=== PATIENT | male | born 1980 | race Caucasian/White ===

== ENCOUNTER 2018-02-26 23:00 | Emergency (ER) | payer BC, SELFPAY ==
--- NOTE | 2018-02-26 23:52 | RAD ---
RADIOGRAPH RIGHT KNEE 4 VIEWS: 02/26/18 HISTORY: 37-year-old male with right knee pain. COMPARISON: None. FINDINGS: There is no fracture or dislocation. There is superficial soft tissue edema anterior to the patellar tendon and anterior to the tibial tubercle. Perhaps tiny joint effusion. No destructive osseous lesio n. Mild degenerative changes at the patellofemoral compartment. Lateral and medial compartment joint spaces are maintained, without erosions or osteophytes. IMPRESSION: 1. Superficial anterior soft tissue edema. 2. Mild osteoarthrosis of the patellofemoral compartment. 3. No fracture. POS: [facility]
[2018-02-26] MEDS ORDERED: HYDROcodone/Acetaminophen 10/325 mg Tablet ONE (23:53)
== END 2018-02-27 00:05 | disposition home or self-care (01) ==
LOC: ERS 23:00
DX: M23.91 Unspecified internal derangement of right knee (principal); F41.9 Anxiety disorder, unspecified; F17.210 Nicotine dependence, cigarettes, uncomplicated; I10 Essential (primary) hypertension; Z79.899 Other long term (current) drug therapy; W22.8XXA Striking against or struck by other objects, initial encounter

== ENCOUNTER 2019-07-05 06:02 | Inpatient (IN) | payer SELFPAY ==
[2019-07-05 06:49] LABS: #Basophils 0.1 thou/uL (0.0-0.2); #Eosinphils 0.4 thou/uL (0.0-0.7); #Lymphocytes 3.6 thou/uL (1.20-3.40); #Neutrophils 3.1 thou/uL (1.40-6.50); %Basophils 0.8 % (0.0-1.0); %Eosinophils 5.2 % (0.0-10.0); %Lymphocytes 43.4 % (21.0-51.0); %Monocytes 12.7 % (0.0-10.0); %Neutrophils 37.8 % (42.0-75.0); Hemoglobin 13.6 g/dL (14.0-18.0); Mean Corpuscular HGB CONC 32.3 g/dL (32.0-36.0); Mean Corpuscular Hemoglobin 29.4 pg (27.0-31.0); Mean Corpuscular Volume 91.2 fL (78.0-98.0); Mean Platelet Volume 7.2 fL (7.4-10.4); Platelet Count 278 thou/uL (130-400); RBC Distribution Width 12.1 % (11.5-14.5); Red Blood Cell (RBC) Count 4.61 mill/uL (4.70-6.10); White Blood Cell (WBC) Count 8.2 thou/uL (4.8-10.8)
[2019-07-05 06:58] LABS: CO2 Tension 55.5 mmHg (35.0-45.0); pH, Arterial 7.35 (7.35-7.45)
[2019-07-05 06:59] LABS: Actual Bicarbonate (HCO3a) 29.7 mEq/L (22-28); Base Excess (BEa) 2.7 mEq/L (-2.0 to +3.0); Carboxyhemoglobin (COHb) 0.5 gm% (0.0-3.0); Hemoglobin (Hb) 14.1 g/dL (14.0-18.0)
[2019-07-05 07:00] LABS: ALV-art Gradient 27.355 (0-20); Analyzer IN Cardio ER; Calcium, Ionized 1.16 mmol/L (1.12-1.30); Potassium - ABG Lab 3.63 mmol/L (3.70-5.30); Puncture Site RRA
[2019-07-05 07:11] LABS: ALT (SGPT) 53 U/L (8-55); AST (SGOT) 28 U/L (5-34); Albumin 4.5 g/dL (3.5-5.0); Alkaline Phosphatase 82 U/L (40-110); Anion Gap 12 mmol/L (10-20); BUN (Urea Nitrogen) 20 mg/dL (8.9-20.6); Bilirubin, Total 0.5 mg/dL (0.2-1.2); Calc. Creatinine Clearance 0 mL/min (70-130); Calcium 9.4 mg/dL (7.8-10.44); Carbon Dioxide 30 mmol/L (22-29); Chloride 99 mmol/L (98-107); Estimated GFR-MDRD 88; Globulin 3.3 g/dL (2.4-3.5); Glucose 112 mg/dL (70-105); Potassium 3.6 mmol/L (3.5-5.1); Protein, Total 7.8 g/dL (6.0-8.3); Sodium 137 mmol/L (136-145)
--- NOTE | 2019-07-05 09:08 | CT ---
CT PULMONARY ANGIOGRAM WITH IV CONTRAST AND 3D POSTPROCESSING: Date: 07/05/19 HISTORY: Dyspnea. FINDINGS: There is good contrast opacification of the pulmonary arterial vasculature without filling defects to suggest pulmonary embolism. The thoracic aorta is well opacified without aneurysm or dissection. No pleural or pericardial effusions are seen. No pneumothoraces, focal areas of consolidation, or lung m asses are identified. There are dependent changes in the lung bases. There are mild degenerative yanes ges in the spine. IMPRESSION: No CT evidence of pulmonary embolism. POS: [facility]
--- NOTE | 2019-07-05 09:34 | RAD ---
PORTABLE CHEST 1 VIEW: Date: 07/05/19 Time: 0632 hours HISTORY: Shortness of breath. FINDINGS/IMPRESSION: The heart is enlarged. No lobar consolidation, pneumothoraces, federico pulmonary edema, or large effusi ons are seen. POS: [facility]
[2019-07-05 11:44] VITALS: BMI 51.7
[2019-07-05] MEDS ORDERED: Senokot S 8.6-50 MG TAB PO PRN (11:59)
[2019-07-05] MEDS ORDERED: Acetaminophen 325 MG TAB PO PRN (11:59)
[2019-07-05] MEDS ORDERED: Bisacodyl 10 MG SUPP PR PRN (11:59)
[2019-07-05] MEDS ORDERED: Guaifenesin DM 100-10/5 ML UDCUP PO PRN (11:59)
[2019-07-05] MEDS ORDERED: Sodium Chloride 0.9% 1,000 ML IV SCH (12:00)
[2019-07-05] MEDS ORDERED: ISOVUE-370 76%-LOCM 1 ML ONE (12:12)
--- NOTE | 2019-07-05 12:20 | HP ---
REASON FOR ADMISSION: Acute respiratory failure with hypoxia and hypercarbia, possible obstructive sleep apnea, possible obesity hypoventilation syndrome, acute metabolic encephalopathy secondary to above. HISTORY OF PRESENTING ILLNESS: Please note majority of this history is obtained by talking to the patient's as patient is not fully oriented at present. He is on BiPAP and is confused. Per , who is here at bedside, he has not been sleeping well for a few months now. He has tried taking Ativan at night and then switched over to Xanax. Saturday night, the patient took Ambien, which did not really work. He has had fragmented sleep and is waking up in between. Yesterday night, he took nearly 20 mg of melatonin and an hour later he took 2 mg of Xanax. He felt congested, woke up and he was in a panic and was pacing repeatedly at home. He thought he also took [place]. Finally, he became very anxious and developed shortness of breath. The also mentions that she has noticed lot of snoring with apneic episodes at home. They are in the process of getting a home sleep study next week. PAST MEDICAL AND SURGICAL HISTORY: History of ADHD, hypertension, morbid obesity, right middle finger surgery, left thumb surgery, hernia repair, GERD. CURRENT MEDICATION: 1. Lisinopril with hydrochlorothiazide 20/12.5 mg p.o. at bedtime. 2. Lorazepam 2 mg p.r.n. 3. 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 ALLERGIES: NO KNOWN DRUG ALLERGIES. PERSONAL HISTORY: He quit smoking six months ago. Does not abuse alcohol or drugs. Lives with his . FAMILY HISTORY: Both parents are living. Mother is healthy. Father has history of hypertension and coronary artery disease. 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 Code status is full. 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 REVIEW OF SYSTEMS: Cannot be accurately obtained as the patient is not oriented at present. PHYSICAL EXAMINATION: GENERAL: The patient is a 38-year-old male, who is currently on BiPAP. VITAL SIGNS: Blood pressure 148/80, pulse 64 per minute, respiratory rate 24 per minute, temperature 98.5 degrees Fahrenheit, saturating 96% on room air. NECK: Supple. No elevated JVD. HEENT: Eyes; extraocular muscles are intact. Pupils reacting to light. Oral cavity, mucous membranes are dry. No exudates or congestion. CARDIOVASCULAR SYSTEM: S1 and S2 heard. Regular rhythm. RESPIRATORY: Air entry 1+ bilateral. Distant breath sounds, rhonchi plus. No wheezes. ABDOMEN: Soft bowel sounds heard. No tenderness, rigidity, or guarding. EXTREMITIES: No peripheral edema or calf tenderness. VASCULAR SYSTEM: Peripheral pulses 2+ bilateral, no ischemic ulcerations or gangrene. CENTRAL NERVOUS SYSTEM: No gross focal deficits noted. The patient is confused and is not oriented. PSYCHIATRIC: Cannot be accurately assessed as he is not oriented at present and is on BiPAP. LABORATORY DATA: CT angio chest done shows no evidence of PE, serum bicarb 30, BUN 20, creatinine 0.9, serum glucose 112. Troponin x1 negative. BNP less than 10. Liver enzymes within normal limits. Albumin is 4.5. Blood gas shows a pH of 7.35, pCO2 55, PO2 53. White count of 8.2, H and H 13 and 42, platelet count 278, MCV is 91 with 37% neutrophils, 43% lymphocytes. EKG done shows normal sinus rhythm at 69 beats per minute. CLINICAL IMPRESSION AND PLAN: The patient will be admitted to [facility] for acute respiratory failure with hypoxia and hypercarbia. He likely has underlying obesity hypoventilation syndrome and obstructive sleep apnea as well. He is tolerating BiPAP and will continue on that. We will obtain Pulmonology consultation with Dr. Dill. We will place him on bronchodilators and mild dose of empiric steroids. We will continue his lisinopril/hydrochlorothiazide as before. The plan is for early mobilization. The patient has taken a combination of medications overnight, which led to worsening of his sleep apnea likely. He weighs nearly 175 kg and is morbidly obese. We will continue to closely monitor him in [facility]. Job ID: [id number]
[2019-07-05] MEDS ORDERED: Bacteriostatic Water 30 ML VIAL FS PRN (12:22)
[2019-07-05] MEDS ORDERED: FLU VACC QS2019-20(6MOS UP)/PF 60 MCG/0.5 ML SYRINGE IM ONE (12:30)
[2019-07-05] MEDS: methylPREDNISolone Sod Succ 40 MG VIAL IVP SCH ×2 (13:13→21:21)
[2019-07-05] MEDS ORDERED: methylPREDNISolone Sod Succ 40 MG VIAL IVP SCH (14:00)
[2019-07-05] MEDS: Famotidine 20 MG TAB PO SCH (21:19)
[2019-07-05] MEDS: Lorazepam 2 MG/ML VIAL SLOW IVP PRN (23:35)
--- NOTE | 2019-07-06 00:01 | CON ---
DATE OF CONSULTATION: 07/05/2019 HISTORY OF PRESENT ILLNESS: Alexander Almodovar presented to the hospital apparently with confusion. I am told he took melatonin and 2 mg of Xanax prior to going to bed as well as Ativan, possibly. Became very anxious last, night short of breath, came to the hospital. His significant other states that he has terrible sleep apnea. In her opinion, he was awaiting a home sleep study. He has been placed on BiPAP and still have an apnea with BiPAP. His apnea is much less frequent per my discussion with the respiratory therapist. He will awaken, but is somnolent. PAST MEDICAL HISTORY: Remarkable for hypertension, obesity, digit surgeries on both hands, and herniorrhaphy. MEDICATIONS: He is on; 1. COLTON inhibitor. 2. Hydrochlorothiazide. 3. He has p.r.n. alprazolam for home use. 4. 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 His girlfriend says that he does not drive anymore. ALLERGIES: HE HAS NO DRUG ALLERGIES. SOCIAL HISTORY: He is a former smoker. Does not drink. He has children from a previous marriage. FAMILY HISTORY: Non contributory. REVIEW OF SYSTEMS: 10 point review of systems completed, otherwise negative. PHYSICAL EXAMINATION: GENERAL: Wearing BiPAP. He will awaken, but quickly goes back to sleep. He is in no distress. VITAL SIGNS: Heart rate 65, blood pressure 117/52, respiratory rates in the teens, and his tidal volumes are about 800 to 1000 mL with BiPAP. He is a very large man 6 feet tall, 381 pounds, and BMI is 51. HEAD AND NECK: Unremarkable. I did not remove his BiPAP mask. LUNGS: Clear. HEART: Regular rhythm. S1, S2 normal. ABDOMEN: Soft and nontender. EXTREMITIES: Without clubbing, cyanosis, or edema. LABORATORY DATA: White count 8.2, hemoglobin 13.6, and platelets 278. Sodium 137, potassium 3.6, chloride 99, bicarb 30, BUN 20, and creatinine 0.96. PH 7.35, CO2 of 55, and PO2 of 53. IMPRESSION: 1. Life-threatening obesity. 2. Obesity hypoventilation syndrome. He will not do well with a home study. He needs an in-lab study for CPAP or BiPAP titration. It is imperative that he get on a 1200- to 1500-calorie a day diet once he gets out of here. Hopefully, we can remove the BiPAP in the morning and begin working on discharge and setting him up for sleep study. He needs to avoid these high doses of alprazolam at home and needs to stay off the Adderall. This is a 70 minute consult, with greater than 50% of time spent on unit coordinating care. Job ID: [id number] MTDD
[2019-07-06 05:13] LABS: #Eosinphils 0.1 thou/uL (0.0-0.7); #Lymphocytes 2.1 thou/uL (1.20-3.40); #Monocytes 0.8 thou/uL (0.11-0.59); #Neutrophils 7.7 thou/uL (1.40-6.50); %Basophils 0.4 % (0.0-1.0); %Eosinophils 0.6 % (0.0-10.0); %Lymphocytes 19.7 % (21.0-51.0); %Monocytes 7.7 % (0.0-10.0); %Neutrophils 71.6 % (42.0-75.0); Hemoglobin 13.8 g/dL (14.0-18.0); Mean Corpuscular HGB CONC 32.8 g/dL (32.0-36.0); Mean Corpuscular Hemoglobin 30.2 pg (27.0-31.0); Mean Corpuscular Volume 91.9 fL (78.0-98.0); Mean Platelet Volume 7.4 fL (7.4-10.4); Platelet Count 287 thou/uL (130-400); Red Blood Cell (RBC) Count 4.56 mill/uL (4.70-6.10); White Blood Cell (WBC) Count 10.8 thou/uL (4.8-10.8)
[2019-07-06 05:37] LABS: Anion Gap 13 mmol/L (10-20); BUN (Urea Nitrogen) 16 mg/dL (8.9-20.6); Calc. Creatinine Clearance 295 mL/min (70-130); Calcium 9.3 mg/dL (7.8-10.44); Carbon Dioxide 26 mmol/L (22-29); Chloride 98 mmol/L (98-107); Estimated GFR-MDRD Greater than 90; Glucose 203 mg/dL (70-105); Potassium 4.4 mmol/L (3.5-5.1); Sodium 133 mmol/L (136-145)
[2019-07-06] MEDS: methylPREDNISolone Sod Succ 40 MG VIAL IVP SCH ×2 (05:54→15:17)
[2019-07-06] MEDS: Lisinopril/Hydrochlorothiazide 20 mg/12.5 mg Tablet PO SCH (09:13)
[2019-07-06] MEDS: Enoxaparin Sodium 40 MG/0.4 ML SYRINGE SC SCH (09:13)
[2019-07-06] MEDS: Famotidine 20 MG TAB PO SCH ×2 (09:13→21:26)
--- NOTE | 2019-07-06 11:48 | PRG ---
DATE OF SERVICE: 07/06/2019 SUBJECTIVE: Mr. Almodovar slept all day yesterday, but did not wear BiPAP last night. He slept on his stomach like he does at his home with his chin tilted back on a pillow. I have explained to him that he has very severe sleep apnea, and we need to figure out a way to get him where he can wear at least nasal pillows while he is trying to lose weight. He showed me a picture of himself early in the springtime, and he probably weighed 150 pounds less than he weighs now. He says he has a diet that he has used in the past that works extremely well and he plans to get back on that. OBJECTIVE: LUNGS: Clear today. HEART: Regular rhythm. ABDOMEN: Soft. IMPRESSION: Obesity hypoventilation syndrome. PLAN: Trial of BiPAP during the day while he is watching TV with nasal pillows plus or minus a chinstrap to see if we can get him where he is semi comfortable with this. Otherwise, if he will not wear this, there is no reason to spend the money on all of this, and he just needs to lose the weight. 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 Hopefully, he will agree to stay in the hospital one more day and we can find a pressure that is accommodating and tolerable. Job ID: [id number]
--- NOTE | 2019-07-06 13:58 | PDOC.HOSPP ---
- Subjective Encounter Date: 07/06/19 Encounter Time: 08:45 Subjective: is awake, not in distress at bedside - Objective Vital Signs & Weight: Vital Signs (12 hours) Temp Pulse Resp Pulse Ox 07/06/19 11:12 98.2 F 07/06/19 10:41 57 L 19 94 L 07/06/19 09:13 77 07/06/19 08:00 97 07/06/19 07:46 95 07/06/19 07:45 97.1 F L 77 22 H 95 07/06/19 04:00 92 L 07/06/19 03:00 97.4 F L Weight Weight 379 lb 6 oz Most Recent Monitor Data Heart Rate from ECG 72 NIBP 155/79 NIBP BP-Mean 104 Respiration from ECG 20 SpO2 93 I&O: 07/05/19 07/06/19 07/07/19 06:59 06:59 06:59 Intake Total 1470 Output Total 1950 Balance -480 Result Diagrams: 07/06/19 04:39 07/06/19 04:39 Hospitalist ROS - Medication Medications: Active Medications Generic Name Dose Route Start Last Admin Trade Name Freq PRN Reason Stop Dose Admin Albuterol/Ipratropium 3 ml 07/05/19 15:00 07/06/19 10:41 Duoneb NEB 3 ml [id number] ALMA DELIA Administration Enoxaparin Sodium 40 mg 07/06/19 09:00 07/06/19 09:13 Lovenox SC 40 mg 0900 ALMA DELIA Administration Famotidine 20 mg 07/05/19 21:00 07/06/19 09:13 Pepcid PO 20 mg BID ALMA DELIA Administration Lisinopril/HCTZ 1 tab 07/06/19 09:00 07/06/19 09:13 Prinizide 20-12.5 PO 1 tab DAILY ALMA DELIA Administration Lorazepam 1 mg 07/05/19 16:21 07/05/19 23:35 Ativan SLOW IVP 1 mg Q6H PRN Administration severe anxiety Methylprednisolone Sodium Succinate 20 mg 07/05/19 14:00 07/06/19 05:54 Solu-Medrol IVP 20 mg Q8HR ALMA DELIA Administration - Exam General Appearance: NAD, awake alert Eye: PERRL, anicteric sclera ENT: no oropharyngeal lesions, moist mucosa Neck: supple, no JVD Heart: RRR, no murmur Respiratory: no wheezes, no rales Gastrointestinal: soft, non-tender, non-distended, normal bowel sounds Extremities: no cyanosis, no edema Neurological: cranial nerve grossly intact, no focal deficits Psychiatric: normal affect, A&O x 3 Hosp A/P (1) Acute respiratory failure with hypoxia and hypercapnia Code(s): J96.01 - ACUTE RESPIRATORY FAILURE WITH HYPOXIA; J96.02 - ACUTE RESPIRATORY FAILURE WITH HYPERCAPNIA Status: Resolved (2) KANCHAN (obstructive sleep apnea) Code(s): G47.33 - OBSTRUCTIVE SLEEP APNEA (ADULT) (PEDIATRIC) Status: Acute (3) Morbid obesity Code(s): E66.01 - MORBID (SEVERE) OBESITY DUE TO EXCESS CALORIES Status: Chronic (4) HTN (hypertension) Code(s): I10 - ESSENTIAL (PRIMARY) HYPERTENSION Status: Chronic Qualifiers: Hypertension type: essential hypertension Qualified Code(s): I10 - Essential (primary) hypertension (5) Attention deficit disorder (ADD) in adult Code(s): F98.8 - OTH BEHAV/EMOTN DISORD W ONSET USLY OCCUR IN CHLDHD AND ADOL Status: Chronic - Plan is on bipap trial for pressure inputs is fully oriented this am will go on his special diet and lose weight, is very motivated losing it at bedside nebs, flonase nasal spray, prinizide echo technically difficult, no rv strain? to ambulate as tolerated
[2019-07-06] MEDS: Lorazepam 2 MG/ML VIAL SLOW IVP PRN (23:56)
[2019-07-07] MEDS ORDERED: Fluticasone Propionate Nasal Spray 16 gm Bottle NASAL PRN (00:57)
[2019-07-07] MEDS: Enoxaparin Sodium 40 MG/0.4 ML SYRINGE SC SCH (08:45)
[2019-07-07] MEDS: Lisinopril/Hydrochlorothiazide 20 mg/12.5 mg Tablet PO SCH (08:45)
[2019-07-07] MEDS: Famotidine 20 MG TAB PO SCH (08:45)
[2019-07-07 08:46] VITALS: BP 127/62
[2019-07-07 11:04] VITALS: TEMP 96.6
--- NOTE | 2019-07-07 17:29 | PRG ---
DATE OF SERVICE: 07/07/2019 Alexander Almodovar wore BiPAP during the day yesterday at 12/8. He said his nose started burning last night, so he took it off and slept without it. He has a home sleep study set up at home. He said he tolerated these pressures well during the day, but I doubt that will adequately treat his sleep apnea. He says he thinks he could wear this at night, so since he already has a home sleep study scheduled, I have recommended that he complete this and then see me after that. We will set up auto BiPAP for him. He will have to buy the device. He understands that with his diet and proceed to try to lose 100 pounds, he says he can lose. I will see him after his sleep study. Job ID: [id number]
--- NOTE | 2019-07-07 18:09 | DIS ---
DATE OF ADMISSION: 07/05/2019 DATE OF DISCHARGE: 07/07/2019 DISCHARGE DISPOSITION: To home. PRIMARY DISCHARGE DIAGNOSES: Acute respiratory failure with hypoxia and hypercarbia; undiagnosed obstructive sleep apnea, likely obesity hypoventilation; morbid obesity; hypertension; history of attention deficit disorder. PROCEDURES DONE DURING HOSPITALIZATION: The patient has had CT angio chest done, which showed no evidence of PE. Echo with 2D Doppler was technically difficult with poor endocardial definition. H and H 13 and 41, platelet count 287, white count of 10, MCV 91. Blood gas done on arrival showed a pH of 7.35, pCO2 of 55, pO2 of 53. BUN 16, creatinine 0.8, serum bicarb 26. Troponin x1 negative. BNP less than 10. INPATIENT CONSULT: Dr. Dill for Pulmonology. DISCHARGE MEDICATIONS: 1. Nexium 40 mg twice daily. 2. Lisinopril with hydrochlorothiazide 20/12.5 mg p.o. daily. 3. Augmentin 875 mg p.o. twice daily for sinusitis for 6 days. 4. Flonase nasal spray. 5. Mucinex 600 mg p.o. twice daily. 6. DuoNebs four times daily p.r.n. ALLERGIES: NO KNOWN DRUG ALLERGIES. DISCHARGE PLAN: The patient has outpatient home sleep study arranged in the coming week. He needs to follow up with Dr. Roman Garcia in [address] Dill after his sleep studies are completed. BRIEF COURSE DURING HOSPITALIZATION: The patient initially was brought to emergency room after he was confused and had fragmented sleep for almost a week. He is morbidly obese and had suspicion of sleep apnea. In fact, the patient was scheduled for a home sleep study in this week. The night before he arrived, the patient took Ambien, Xanax, and melatonin, the combination of which drove him towards acute respiratory failure with hypoxia and hypercarbia. He was placed on BiPAP and admitted to [facility]. He has had consultation with Dr. Dill for Pulmonology. The patient was titrated on BiPAP here. He has had issues with tolerating it. Finally, the patient was okay with nasal pillows and pressure of 12/8, but had some nasal burning/irritation with it. The patient states he will likely tolerate this pressure if the air is humidified. He is advised to continue his home sleep study and follow up with Dr. Dill. Dr. Dill will set up auto BiPAP for him. He is also in the process of going on a strict diet and losing weight. He is hemodynamically stable and has been cleared for discharge by Dr. Dill. Please note, I have seen and examined the patient on the day of discharge. Job ID: [id number]
== END 2019-07-07 15:41 | disposition home or self-care (01) | DRG 189 ==
LOC: ERS 06:02 → IMCU/EMU 07:32
PROVIDERS: ADMIT Internal Medicine; ATTEND Internal Medicine
DX: J96.01 Acute respiratory failure with hypoxia (principal); G93.41 Metabolic encephalopathy; E66.2 Morbid (severe) obesity with alveolar hypoventilation; Z68.43 Body mass index [BMI] 50.0-59.9, adult; J96.02 Acute respiratory failure with hypercapnia; F90.9 Attention-deficit hyperactivity disorder, unspecified type; I10 Essential (primary) hypertension; K21.9 Gastro-esophageal reflux disease without esophagitis; Z98.890 Other specified postprocedural states; Z79.899 Other long term (current) drug therapy; Z87.891 Personal history of nicotine dependence
CPT/HCPCS: 36415; 71045; 71275; 80048; 80053; 82805; 83880; 84484; 85025; 90471; 90686; 90732; 93005; 93306; 94640; 94660; G0008; G0009; J1650; J2060; J2920; J7620; Q9966

== ENCOUNTER 2019-09-01 20:05 | Observation (INO) | payer SELFPAY ==
[2019-09-01 20:45] LABS: Bilirubin Large (Negative); Blood, Urine Large (Negative); Glucose, Urine (Dipstick) 100 mg/dL (Negative); Leukocyte Large (Negative); Nitrite Negative (Negative); Protein, Urine (Dipstick) > or equal to 300 mg/dL (Neg-Trace)
[2019-09-01 20:46] LABS: Clarity Turbid (Clear)
[2019-09-01 20:53] LABS: RBC/HPF Greater than 50 HPF (0-3)
[2019-09-01 20:54] LABS: Bacteria/HPF 2+ HPF (None Seen); Squamous Epithelial 0-3 HPF (0-3); Trichomonas/HPF None Seen HPF (None Seen); Yeast-Budding None Seen HPF (None Seen); Yeast-Hyphae None Seen HPF (None Seen)
[2019-09-01 21:26] LABS: #Basophils 0.1 thou/uL (0.0-0.2); #Eosinphils 0.4 thou/uL (0.0-0.7); #Lymphocytes 4.1 thou/uL (1.20-3.40); #Neutrophils 6.9 thou/uL (1.40-6.50); %Basophils 0.7 % (0.0-1.0); %Eosinophils 2.8 % (0.0-10.0); %Lymphocytes 33.1 % (21.0-51.0); %Monocytes 7.9 % (0.0-10.0); %Neutrophils 55.5 % (42.0-75.0); Hemoglobin 12.8 g/dL (14.0-18.0); Mean Corpuscular HGB CONC 34.7 g/dL (32.0-36.0); Mean Corpuscular Volume 89.5 fL (78.0-98.0); Mean Platelet Volume 7.2 fL (7.4-10.4); Platelet Count 298 thou/uL (130-400); RBC Distribution Width 12.2 % (11.5-14.5); Red Blood Cell (RBC) Count 4.13 mill/uL (4.70-6.10); White Blood Cell (WBC) Count 12.4 thou/uL (4.8-10.8)
[2019-09-01 21:32] LABS: INR-International Normal Ratio 0.9; PTT 26.6 SEC (22.9-36.1); Prothrombin Time 12.4 SEC (12.0-14.7)
[2019-09-01 21:46] LABS: ALT (SGPT) 40 U/L (8-55); AST (SGOT) 23 U/L (5-34); Albumin 4.3 g/dL (3.5-5.0); Alkaline Phosphatase 82 U/L (40-110); Anion Gap 14 mmol/L (10-20); BUN (Urea Nitrogen) 16 mg/dL (8.9-20.6); Bilirubin, Total 0.4 mg/dL (0.2-1.2); Calc. Creatinine Clearance 0 mL/min (70-130); Calcium 9.3 mg/dL (7.8-10.44); Carbon Dioxide 25 mmol/L (22-29); Chloride 102 mmol/L (98-107); Estimated GFR-MDRD 64; Globulin 3.2 g/dL (2.4-3.5); Glucose 205 mg/dL (70-105); Protein, Total 7.5 g/dL (6.0-8.3); Sodium 137 mmol/L (136-145)
--- NOTE | 2019-09-01 22:01 | CT ---
CT ABDOMEN AND PELVIS WITH IV CONTRAST 09/01/2019 CLINICAL INFORMATION: Hematuria. COMPARISON: None. Technique: Multiple contiguous axial CT images are obtained through the abdomen and pelvis with IV contrast. Cor onal reformatted images are provided. FINDINGS: Lower Chest: Minimal atelectasis is present in the lingula. The lung bases are otherwise clear. Vessels: Abdominal aorta is normal in caliber. Abdomen: Portal vein:Patent Gallbladder: Within normal limits for CT imaging. Liver: Diminished attenuation relative to the spleen likely attributable to fatty infiltration. The l iver is enlarged in craniocaudal dimensions measuring 20 cm. Spleen: within normal limits. Pancreas: within normal limits. Adrenals: within normal limits. Kidneys: No enhancing renal lesion is identified. There is no hydronephrosis. While precontrast imagi ng was not obtained, no definitive renal calculus is seen. No ureteral calculi are appreciated. Bowel: Normal caliber. Appendix: The appendix is visualized and normal in caliber. Peritoneum: No ascites or free air; no fluid collection. Mesentery and Retroperitoneum: No enlarged mesenteric or retroperitoneal lymph nodes. Abdominal Wall: within normal limits. Pelvis: Reproductive Organs: No pelvic masses. Pelvis within normal limits. Bladder: There is suggestion of slight irregular increased density at the posterior inferior aspect o f the urinary bladder. This could be artifactual, but a lesion within the base of the urinary bladder cannot be entirely excluded. This would be better evaluated with direct visualization. Bones: Bilateral pars defects are seen at L5 without significant anterolisthesis. IMPRESSION: 1. Slight irregular increased density in the posterior inferior aspect of the urinary bladder. While this could be artifactual, a lesion in the urinary bladder cannot be excluded. Direct visualization is recommended for further evaluation. 2. No enhancing renal mass is seen, and there is no hydronephrosis. 3. Fatty infiltration liver with enlargement of the liver in craniocaudal dimensions. 4. Bilateral pars defects at L5.
[2019-09-01] MEDS ORDERED: cefTRIAXone\\ROCEPHIN 2 GM VIAL ONE (22:44)
[2019-09-01] MEDS ORDERED: Sodium Chloride 0.9% 100 ML ONE (22:44)
[2019-09-02] MEDS ORDERED: Acetaminophen 325 MG TAB PO PRN (00:06)
[2019-09-02] MEDS ORDERED: Sodium Chloride 0.9% 1,000 ML IV SCH (00:30)
--- NOTE | 2019-09-02 00:54 | HP ---
CHIEF COMPLAINT: Hematuria. HISTORY OF PRESENT ILLNESS: This patient is a 39-year-old male, who was admitted to this facility in June with hypoxic and hypercapnic respiratory failure, likely due to a combination of obesity, sleep apnea, and sedative medications. The patient did not have a Pérez catheter during that admission. The patient reports that he was doing fine. 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 He noted yesterday that his urine became dark, subsequently became red consistent with hematuria and then he developed some clots that obstructed his urine at times, although it did not give him pain. It did cause him to force the urine more aggressively and when that happen, the clot would pass and blood and urine would splatter a bit. The patient ultimately presented to the emergency department today with the hematuria. He denies any pain, frequency, dysuria, or other urinary tract symptoms. He denies any fevers or chills. REVIEW OF SYSTEMS: He has some mild edema around the ankles, but otherwise all systems reviewed. All pertinent positives and negatives noted in the history of present illness. PAST MEDICAL HISTORY: Notable for ADHD, hypertension, morbid obesity, and obstructive sleep apnea. The patient reports that he did go and get a sleep study following his last admission. However, he chose not to pursue CPAP therapy because he is now getting a milligram of Xanax at bedtime and feels like he is sleeping well. Gastroesophageal reflux. PAST SURGICAL HISTORY: Right middle finger, left thumb surgery, hernia repair. FAMILY HISTORY: Both parents are living. Mother is healthy. Father has hypertension and coronary disease. SOCIAL HISTORY: Former smoker, quit about eight months ago. Denies alcohol or drugs. He is . He is full code and his would be his surrogate decision maker. In her absence, his friend, Usman Parkinson would be the substitute. CURRENT MEDICATIONS: 1. Lisinopril/HCTZ 20/12.5 one p.o. daily. 2. Lorazepam 2 mg p.r.n. 3. Nexium 40 mg p.o. daily. PHYSICAL EXAMINATION: VITAL SIGNS: Most recent vitals, BP 140/79, pulse 85, respirations 18, temperature is 98.7, O2 saturation is 96% on room air. GENERAL APPEARANCE: Age-appropriate male. He is awake, alert, pleasant, cooperative, morbidly obese, and has some nasal congestion audible in his speech. HEENT: CARLOS. No OP lesions. Large tongue with oropharynx not easily visible. NECK: Supple and symmetric, large in diameter. HEART: Regular rate and rhythm with no murmurs, gallops, or rubs. LUNGS: Clear to auscultation bilaterally with good chest wall expansion and air exchange. ABDOMEN: Soft, nontender, and nondistended. Positive bowel sounds. No masses. No organomegaly. He has no costovertebral angle tenderness. EXTREMITIES: He has trace edema at the sock line. No cyanosis or clubbing. PSYCH: The patient does demonstrate some characteristic ADHD behaviors in conversation and tends to jump around a bit and interrupts sentences, although very pleasant in doing so. NEURO: Cognitively intact, moving all extremities spontaneously. Cranial nerves intact. No focal deficits. LABORATORY DATA: White count 12.4, hemoglobin 12.8, platelets 298. Sodium 137, potassium 4.0, chloride 102, BUN 16, creatinine is 1.26, glucose 205, , AST 23, ALT 40, albumin 4.3. Urine is dark red, turbid, high protein levels, glucose levels, ketones present, large blood, large bilirubin, large leukocyte esterase with greater than 50 red cells, 11 to 20 white cells and 2+ bacteria. INR 0.9, PTT is 26.6. IMAGING STUDIES: CT abdomen and pelvis shows no pathology of the kidneys or ureters. There is a slight irregular increased density in the posterior inferior aspect of the urinary bladder, which could be artifactual. Lesion cannot be excluded. There is also fatty infiltration of the liver with enlargement of the liver in the craniocaudal dimensions. IMPRESSION AND PLAN: 1. Gross hematuria. Etiology is unclear, could be infectious. He has received a dose of Rocephin. We will continue that. He has no other significant risk factors for other pathology and has not had any recent instrumentation. He will continue with IV hydration and Dr. Henriquez has been notified. He will assess the patient in the morning and has left orders for a three-way catheter, should that become necessary, if the patient clots obstruct. We will follow his hemoglobin at this point and it appears his counts are fairly solid and does not look like he is rapidly losing significant amount of blood. 2. Hypertension. Continue lisinopril/HCTZ with his usual home dose. 3. Obstructive sleep apnea. The patient has opted not to treat himself with CPAP, but is using sedative medications, which is a bit concerning, but something needs to be addressed more long-term as an outpatient. I am not giving him any sedation here for fear of worsening sleep apnea symptoms. 4. History of gastroesophageal reflux disease. Continue with PPI. Peptic ulcer disease prophylaxis covered with the PPI. 5. Deep venous thrombosis prophylaxis. The patient will have SCDs and avoid anticoagulation in light of the hematuria. Job ID: [id number]
[2019-09-02 01:07] VITALS: BMI 51.5
[2019-09-02] MEDS: Oxymetazoline HCl 0.05% (30 ML BOT) NS PRN ×2 (01:34→09:16)
[2019-09-02 06:13] LABS: #Eosinphils 0.3 thou/uL (0.0-0.7); #Lymphocytes 2.8 thou/uL (1.20-3.40); #Monocytes 0.8 thou/uL (0.11-0.59); #Neutrophils 4.3 thou/uL (1.40-6.50); %Basophils 0.3 % (0.0-1.0); %Eosinophils 3.3 % (0.0-10.0); %Lymphocytes 34.7 % (21.0-51.0); %Monocytes 9.3 % (0.0-10.0); %Neutrophils 52.5 % (42.0-75.0); Hemoglobin 12.3 g/dL (14.0-18.0); Mean Corpuscular HGB CONC 34.9 g/dL (32.0-36.0); Mean Corpuscular Hemoglobin 31.4 pg (27.0-31.0); Mean Corpuscular Volume 89.8 fL (78.0-98.0); Mean Platelet Volume 7.2 fL (7.4-10.4); Platelet Count 265 thou/uL (130-400); RBC Distribution Width 12.1 % (11.5-14.5); Red Blood Cell (RBC) Count 3.93 mill/uL (4.70-6.10); White Blood Cell (WBC) Count 8.2 thou/uL (4.8-10.8)
[2019-09-02 06:35] LABS: Anion Gap 11 mmol/L (10-20); BUN (Urea Nitrogen) 14 mg/dL (8.9-20.6); Calc. Creatinine Clearance 285 mL/min (70-130); Carbon Dioxide 25 mmol/L (22-29); Chloride 103 mmol/L (98-107); Estimated GFR-MDRD Greater than 90; Glucose 169 mg/dL (70-105); Potassium 4.2 mmol/L (3.5-5.1); Sodium 135 mmol/L (136-145)
[2019-09-02 07:40] VITALS: BP 162/74; TEMP 97.8
--- NOTE | 2019-09-02 08:55 | CON ---
DATE OF CONSULTATION: 09/02/2019 HISTORY OF PRESENT ILLNESS: This is a 39-year-old white male, who was admitted last night with gross hematuria. It started probably a couple of days ago. 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 Urine was getting quite dark. , who is a nurse, said looked like it was kind of tea-colored and yesterday, it got redder, more maroon color, and he started having clots with it. He was able to pass the clots. He had no flank pain, no testicular pain, no abdominal pain, no nausea, no vomiting, no fevers, no chills, no dysuria, no change in urinary tract frequency or urgency. He has not been sick recently with any febrile illnesses, although in the last couple of days, he has developed mild upper respiratory tract symptoms. He has not been coughing up blood, however. He perhaps had some blood in the urine a year ago. He does have a history of tobacco use, although he quit 8 months ago. His white count yesterday was 12.4, it is 8.2 today. His hemoglobin yesterday was 12.8, was 12.3 today. His coags were normal yesterday. His creatinine was 1.2 yesterday, it is 0.8 today. His urine showed greater than 50 red cells, 11 to 20 white cells, and 2+ bacteria. Urine culture, I think, has been set up. It does not show a micro, but usually is a delay in doing that. He has been in the hospital here before, but I cannot find that he has had a urinalysis done before. PAST SURGICAL HISTORY: He has had hernia repair that was uneventful. He has had orthopedic procedures done on his left hand with some amputated digits and some reattachment of the thumb. PAST MEDICAL HISTORY: ADHD, hypertension, obesity, sleep apnea, and reflux disease. FAMILY HISTORY: No family history of renal disease. SOCIAL HISTORY: Denies any. Quit cigarette smoking. ROUTINE MEDICINES: 1. Nexium. 2. Lorazepam. 3. Lisinopril/hydrochlorothiazide. PHYSICAL EXAMINATION: He has no flank tenderness. His abdomen is obese but nontender. The bladder does not feel to be distended. He is not circumcised. There is no lesion. There is no blood at the meatus. The testicles descended without mass or tenderness. On looking at his three glass urine, his urine is starting to clear. Feels like the last time he went, which was in the toilet, it was much clear. I have reviewed his CAT scan, which was done with contrast. There are no delayed images or no precontrast images, but it failed to show any obvious renal lesion, hydronephrosis, or obvious renal stone. The bladder was not distended. There was a lesion in the base of the bladder, which could possibly be a bladder tumor, could also just be some clot that has not passed yet. I talked to the patient and his indicating that we need to see what the results of the urine culture are, probably will not be back until tomorrow or Saturday. He will need a cysto, but I would like to make sure we do that when we know if he has an infection that has been cleared, that will probably be done in my office. I think if his urine continues to clear this morning, he could safely go home on some oral Cipro and call my office Saturday and I can check the urine culture and set up followup visit for him. He should avoid aspirin and nonsteroidals. If he is here tomorrow, I will check him again. If he is not here tomorrow, then I will expect him to call my office this Saturday. Job ID: [id number]
[2019-09-02] MEDS ORDERED: Lisinopril/Hydrochlorothiazide 20 mg/12.5 mg Tablet PO SCH (09:00)
--- NOTE | 2019-09-02 12:42 | DIS ---
DATE OF ADMISSION: 09/01/2019 DATE OF DISCHARGE: 09/02/2019 DISCHARGE DIAGNOSES: 1. Gross hematuria, improved. 2. Urinary tract infection, suspected, organism not identified. 3. Hypertension. 4. Obstructive sleep apnea. 5. Morbid obesity. CONSULTATIONS: Dr. Francisco Henriquez with [facility]. PERTINENT LABORATORY AND X-RAY FINDINGS: Creatinine ranged between 0.85 to 1.26, estimated GFR ranged between 64 to greater than 90. CBC showed a white blood cell count ranged between 8.2 to 12.4, hemoglobin ranged between 12.3 to 12.8. PT 12.4, INR 0.9, and PTT 26.6. Urine culture pending. CT of the abdomen and pelvis dated 09/01/2019 showed irregular density in the posteroinferior aspect of the urinary bladder. No renal mass or hydronephrosis noted. Fatty infiltration of the liver noted. HOSPITAL COURSE: The patient was observed on the medical floor after presenting with gross hematuria. The patient was placed on IV fluids with urinalysis confirming a large amount of blood. The patient received prophylactic Rocephin and continued on IV fluids for the remainder of the hospital course. The patient was evaluated by the [facility] with recommendations to initiate ciprofloxacin on an outpatient basis pending final urine culture results. The patient will need outpatient evaluation including cystoscopy after resolution of acute process. The patient was instructed to avoid all NSAIDs and anticoagulation or instrumentation. Overall, the patient did remain clinically stable during the hospital course, tolerating regular oral intake and voiding appropriately. The patient overall clinically stable and ready for discharge on 09/02/2019. I have examined the patient and discussed followup instructions. The patient and family verbalized understanding and in agreement and ready for discharge on 09/02/2019. DISCHARGE MEDICATIONS: 1. Xanax 1 mg p.o. at bedtime p.r.n. 2. Nexium 40 mg p.o. b.i.d. 3. Lisinopril/hydrochlorothiazide 20/12.5 mg 1 tablet p.o. daily. 4. Ciprofloxacin 500 mg p.o. b.i.d. x7 days. 5. Fluticasone 1 spray in each naris daily. FOLLOWUP: The patient may follow up with his primary care provider, Dr. Roman Garcia within 7 days of discharge. The patient may follow up with Dr. Francisco Martinez with [facility] and to call his office for appointment time and date. CONDITION ON DISCHARGE: Stable. ACTIVITY: Ad-kaylen. DIET: Heart healthy. SPECIAL INSTRUCTIONS: Review urine culture results when available in the next 24 to 48 hours. CODE STATUS: Full. DISPOSITION: To home on 09/02/2019. Job ID: [id number]
[2019-09-02] MEDS ORDERED: cefTRIAXone\\ROCEPHIN 2 GM in Sodium Chloride 0.9% 100 ML IVPB SCH (23:00)
== END 2019-09-02 12:10 | disposition home or self-care (01) ==
LOC: ERS 20:05 → T4-A 23:19
PROVIDERS: ADMIT Internal Medicine; ATTEND Internal Medicine
DX: R31.0 Gross hematuria (principal); I10 Essential (primary) hypertension; G47.33 Obstructive sleep apnea (adult) (pediatric); K21.9 Gastro-esophageal reflux disease without esophagitis; E66.01 Morbid (severe) obesity due to excess calories; F90.9 Attention-deficit hyperactivity disorder, unspecified type; Z68.43 Body mass index [BMI] 50.0-59.9, adult; Z79.899 Other long term (current) drug therapy; Z87.891 Personal history of nicotine dependence
CPT/HCPCS: 36415; 74177; 80048; 80053; 81003; 81015; 85025; 85610; 85730; 87086; 96361; 96365; 96366; G0378; J0696; J3490

== ENCOUNTER 2022-12-10 12:00 | Observation (INO) | payer SELFPAY ==
[2022-12-10 12:45] LABS: #Eosinphils 0.2 thou/uL (0.0-0.7); #Lymphocytes 3.3 thou/uL (1.20-3.40); #Monocytes 0.8 thou/uL (0.11-0.59); #Neutrophils 6.5 thou/uL (1.40-6.50); %Eosinophils 2.2 % (0.0-10.0); %Lymphocytes 30.1 % (21.0-51.0); %Monocytes 7.6 % (0.0-10.0); %Neutrophils 60.1 % (42.0-75.0); Hemoglobin 12.5 g/dL (14.0-18.0); Mean Corpuscular HGB CONC 33.2 g/dL (32.0-36.0); Mean Corpuscular Hemoglobin 30.1 pg (27.0-31.0); Mean Corpuscular Volume 90.7 fl (78.0-98.0); Mean Platelet Volume 7.8 fL (7.4-10.4); Platelet Count 269 10x3/uL (130-400); RBC Distribution Width 12.1 % (11.5-14.5); Red Blood Cell (RBC) Count 4.14 mill/uL (4.70-6.10); White Blood Cell (WBC) Count 10.8 10x3/uL (4.8-10.8)
[2022-12-10 13:01] LABS: PTT 26.4 sec (22.9-36.1); Prothrombin Time 13.1 sec (12.0-14.7)
[2022-12-10 13:13] LABS: ALT (SGPT) 33 U/L (8-55); AST (SGOT) 24 U/L (5-34); Albumin 4.2 g/dL (3.5-5.0); Alkaline Phosphatase 68 U/L (40-110); Anion Gap 12 mmol/L (10-20); BUN (Urea Nitrogen) 15 mg/dL (8.9-20.6); Bilirubin, Total 0.7 mg/dL (0.2-1.2); Calc. Creatinine Clearance 0 mL/min (70-130); Calcium 9.2 mg/dL (7.8-10.44); Carbon Dioxide 24 mmol/L (22-29); Chloride 104 mmol/L (98-107); Estimated GFR 115; Globulin 3.3 g/dL (2.4-3.5); Glucose 156 mg/dL (70-105); Potassium 4.1 mmol/L (3.5-5.1); Protein, Total 7.5 g/dL (6.0-8.3); Sodium 136 mmol/L (136-145)
[2022-12-10] MEDS ORDERED: fentaNYL PF 100 MCG/2 ML SYRINGE ONE (13:54)
[2022-12-10] MEDS ORDERED: Morphine 4 MG/ML VIAL ONE (13:55)
[2022-12-10] MEDS ORDERED: CEFAZOLIN 2 GM VIAL ONE (14:06)
[2022-12-10] MEDS ORDERED: Ondansetron PF 4 MG/2 ML Vial ONE (15:23)
[2022-12-10] MEDS ORDERED: PROPOFOL 200 MG/20 ML VIAL ONE (15:23)
[2022-12-10] MEDS ORDERED: GLYCOPYRROLATE/PF 0.2 MG/ML VIAL ONE (15:23)
[2022-12-10] MEDS ORDERED: Lidocaine 1% PF 5 ML VIAL ONE (15:23)
[2022-12-10] MEDS ORDERED: Rocuronium Bromide 10 MG/ML (10ML VIAL) ONE (15:23)
[2022-12-10] MEDS ORDERED: Dexamethasone 20 MG/5 ML VIAL ONE (15:23)
[2022-12-10] MEDS ORDERED: NEOSTIGMINE 3 MG/3 ML SYR 3 MG/3 ML SYRINGE ONE (15:23)
[2022-12-10] MEDS ORDERED: Meperidine HCl/PF 25 MG/ML VIAL ONE (16:37)
[2022-12-10] MEDS ORDERED: HYDROmorphone 2 MG/ML VIAL SLOW IVP PRN (16:40)
[2022-12-10] MEDS ORDERED: Promethazine HCl 25 MG/ML VIAL IM PRN (16:40)
[2022-12-10] MEDS ORDERED: Ondansetron HCl/PF 4 MG/2 ML Vial IVP PRN (16:40)
[2022-12-10] MEDS ORDERED: Meperidine HCl/PF 25 MG/ML VIAL SLOW IVP PRN ×2 (16:40)
[2022-12-10] MEDS ORDERED: fentaNYL 50 mcg/mL 1 mL Vial ONE ×4 (16:56→18:35)
[2022-12-10] MEDS ORDERED: B & O 30 MG SUPP PR PRN (17:08)
[2022-12-10] MEDS ORDERED: Dextrose 50% Abboject 50 ML SYRINGE SLOW IVP PRN (18:45)
[2022-12-10] MEDS ORDERED: Ondansetron ODT 4 MG TAB PO PRN (18:45)
[2022-12-10] MEDS ORDERED: HYDROcodone/Acetaminophen 7.5/325 mg Tablet PO PRN (18:45)
[2022-12-10] MEDS ORDERED: Ondansetron PF 4 MG/2 ML Vial IVP PRN (18:45)
[2022-12-10] MEDS ORDERED: Dextrose 5% in Water 1,000 ML IV PRN (18:45)
[2022-12-10] MEDS ORDERED: Acetaminophen 325 MG TAB PO PRN (18:45)
[2022-12-10] MEDS ORDERED: HumaLOG 300 UNITS/3 ML VIAL SC PRN ×2 (18:45)
[2022-12-10 20:39] VITALS: BMI 52.4
[2022-12-10 21:34] LABS: Hemoglobin 12.2 g/dL (14.0-18.0)
[2022-12-10] MEDS: Sodium Chloride 0.9% 1,000 ML IV SCH (21:36)
[2022-12-10 21:55] LABS: Bilirubin Negative (Negative); Blood, Urine 3+ (Negative); CAUTI Indications for Culture Acute Hematuria; Clarity Turbid (Clear); Glucose, Urine (Dipstick) Greater than 1000 mg/dL (Negative); Ketone, Urine 10 mg/dL (Negative); Leukocyte 25 Leu/uL (Negative); Mucous/LPF Rare LPF (<2+); Nitrite Negative (Negative); Protein, Urine (Dipstick) 100 mg/dL (Neg-Trace); RBC/HPF Greater than 50 HPF (0-3); Specific Gravity, Urine 1.022 (1.002-1.036); Squamous Epithelial None Seen HPF (0-3); Urobilinogen Normal mg/dL (Less than 2)
[2022-12-10 22:03] LABS: Bacteria/HPF 1+ HPF (None Seen)
[2022-12-10 22:04] LABS: Urine Culture Reflex Yes Yes
[2022-12-10] MEDS: HYDROcodone/Acetaminophen 7.5/325 mg Tablet PO PRN (22:17)
[2022-12-10] MEDS: CEFAZOLIN 1 GM in Sodium Chloride 0.9% 100 ML IVPB SCH (22:17)
[2022-12-11] MEDS: Morphine 2 MG/ML VIAL SLOW IVP PRN ×2 (00:03→04:27)
[2022-12-11] MEDS ORDERED: ALPRAZolam 1 MG TAB PO PRN (00:19)
[2022-12-11] MEDS: CEFAZOLIN 1 GM in Sodium Chloride 0.9% 100 ML IVPB SCH ×2 (05:27→16:59)
[2022-12-11 07:43] LABS: #Lymphocytes 2.6 thou/uL (1.20-3.40); #Monocytes 1.2 thou/uL (0.11-0.59); #Neutrophils 10.7 thou/uL (1.40-6.50); %Basophils 0.2 % (0.0-1.0); %Eosinophils 0.2 % (0.0-10.0); %Monocytes 8.4 % (0.0-10.0); %Neutrophils 73.2 % (42.0-75.0); Hemoglobin 11.6 g/dL (14.0-18.0); Mean Corpuscular HGB CONC 32.6 g/dL (32.0-36.0); Mean Corpuscular Hemoglobin 29.7 pg (27.0-31.0); Mean Platelet Volume 7.6 fL (7.4-10.4); Platelet Count 308 10x3/uL (130-400); RBC Distribution Width 12.1 % (11.5-14.5); White Blood Cell (WBC) Count 14.7 10x3/uL (4.8-10.8)
[2022-12-11] MEDS ORDERED: ESOMEPRAZOLE MAGNESIUM 40 MG PO SCH (08:00)
[2022-12-11 08:01] VITALS: TEMP 97.9
[2022-12-11 08:51] LABS: Anion Gap 16 mmol/L (10-20); BUN (Urea Nitrogen) 16 mg/dL (8.9-20.6); Calc. Creatinine Clearance 281 mL/min (70-130); Calcium 8.8 mg/dL (7.8-10.44); Carbon Dioxide 20 mmol/L (22-29); Chloride 102 mmol/L (98-107); Estimated GFR 111; Glucose 244 mg/dL (70-105); Potassium 4.3 mmol/L (3.5-5.1); Sodium 134 mmol/L (136-145)
[2022-12-11] MEDS ORDERED: Rosuvastatin 10 MG TAB PO SCH (09:00)
[2022-12-11] MEDS ORDERED: Polyethylene Glycol 3350 17 GM Packet PO SCH (09:00)
[2022-12-11] MEDS ORDERED: Lisinopril 20 MG TAB PO SCH (09:00)
[2022-12-11] MEDS ORDERED: Fluticasone Propionate Nasal Spray 16 gm Bottle NASAL SCH (09:00)
[2022-12-11] MEDS: Sodium Chloride 0.9% 1,000 ML IV SCH (09:30)
[2022-12-11] MEDS: HYDROcodone/Acetaminophen 7.5/325 mg Tablet PO PRN (15:17)
[2022-12-11 16:52] VITALS: BP 135/69
[2022-12-11] MEDS ORDERED: METFORMIN HCL 500 MG PO SCH (21:00)
== END 2022-12-11 18:17 | disposition home or self-care (01) ==
LOC: ERS 12:00 → T4-A 15:55
PROVIDERS: ADMIT Internal Medicine; ATTEND Internal Medicine
PROC: 0TBB8ZZ Excision of Bladder, Via Natural or Artificial Opening Endoscopic (ICD-10-PCS; principal; 2022-12-10)
DX: N30.81 Other cystitis with hematuria (principal); I10 Essential (primary) hypertension; E11.9 Type 2 diabetes mellitus without complications; E78.5 Hyperlipidemia, unspecified; D64.9 Anemia, unspecified; K21.9 Gastro-esophageal reflux disease without esophagitis; G47.33 Obstructive sleep apnea (adult) (pediatric); E66.01 Morbid (severe) obesity due to excess calories; Z68.43 Body mass index [BMI] 50.0-59.9, adult; Z85.51 Personal history of malignant neoplasm of bladder; Z87.891 Personal history of nicotine dependence; Z79.84 Long term (current) use of oral hypoglycemic drugs; Z79.899 Other long term (current) drug therapy
CPT/HCPCS: 36415; 36416; 80048; 80053; 81001; 85025; 85610; 85730; 86850; 86900; 86901; 87086; 88307; 96375; 96376; G0378; J0690; J1100; J1815; J2175; J2270; J2272; J2405; J2704; J3010; J3490

== ENCOUNTER 2023-05-28 10:53 | Observation (INO) | payer SELFPAY ==
[2023-05-28 11:44] LABS: SARS-CoV-2 NAA Rapid Test Not Detected (NotDetected)
[2023-05-28] MEDS ORDERED: Ketorolac Tromethamine 30 MG/ML VIAL ONE (11:54)
[2023-05-28] MEDS ORDERED: Acetaminophen 500 MG TAB ONE (11:54)
[2023-05-28] MEDS ORDERED: cefTRIAXone (ROCEPHIN) 2 GM VIAL ONE (12:11)
[2023-05-28 12:25] LABS: #Basophils 0.1 thou/uL (0.0-0.2); #Monocytes 1.6 thou/uL (0.11-0.59); #Neutrophils 9.8 thou/uL (1.40-6.50); %Basophils 0.4 % (0.0-1.0); %Eosinophils 0.2 % (0.0-10.0); %Lymphocytes 13.3 % (21.0-51.0); %Monocytes 12.2 % (0.0-10.0); %Neutrophils 73.6 % (42.0-75.0); Hematocrit 35.9 % (42.0-52.0); Hemoglobin 11.7 g/dL (14.0-18.0); Mean Corpuscular HGB CONC 32.6 g/dL (32.0-36.0); Mean Corpuscular Hemoglobin 29.9 pg (27.0-31.0); Mean Corpuscular Volume 91.8 fl (78.0-98.0); Mean Platelet Volume 9.8 fL (7.4-10.4); Platelet Count 251 10x3/uL (130-400); RBC Distribution Width 13.5 % (11.5-14.5); Red Blood Cell (RBC) Count 3.91 mill/uL (4.70-6.10); White Blood Cell (WBC) Count 13.3 10x3/uL (4.8-10.8)
[2023-05-28 12:35] LABS: INR-International Normal Ratio 1.1; Prothrombin Time 14.8 sec (12.0-14.7)
[2023-05-28 12:51] LABS: ALT (SGPT) 56 U/L (8-55); AST (SGOT) 38 U/L (5-34); Albumin 4.1 g/dL (3.5-5.0); Alkaline Phosphatase 79 U/L (40-110); Anion Gap 13 mmol/L (10-20); BUN (Urea Nitrogen) 8 mg/dL (8.9-20.6); Calc. Creatinine Clearance 0 mL/min (70-130); Calcium 8.9 mg/dL (7.8-10.44); Carbon Dioxide 23 mmol/L (22-29); Chloride 97 mmol/L (98-107); Estimated GFR 112; Globulin 3.4 g/dL (2.4-3.5); Glucose 171 mg/dL (70-105); Potassium 3.7 mmol/L (3.5-5.1); Protein, Total 7.5 g/dL (6.0-8.3); Sodium 129 mmol/L (136-145)
[2023-05-28] MEDS ORDERED: Azithromycin 500 MG VIAL ONE (13:09)
[2023-05-28] MEDS ORDERED: Acetaminophen 325 MG TAB PO PRN ×2 (14:04→15:44)
[2023-05-28] MEDS ORDERED: Ondansetron ODT 4 MG TAB PO PRN (14:04)
[2023-05-28] MEDS ORDERED: Ondansetron PF 4 MG/2 ML Vial IVP PRN (14:04)
[2023-05-28] MEDS ORDERED: Ibuprofen 600 MG TAB PO PRN (14:04)
[2023-05-28] MEDS ORDERED: Calcium Carbonate 500 MG ChewTAB PO PRN (14:04)
[2023-05-28] MEDS ORDERED: Sodium Chloride 0.9% 1,000 ML IV SCH (14:15)
[2023-05-28] MEDS ORDERED: Ipratropium/Albuterol 3 ML NEB NEB PRN (14:17)
[2023-05-28 14:33] LABS: #Monocytes 1.8 thou/uL (0.11-0.59); #Neutrophils 10.4 thou/uL (1.40-6.50); %Basophils 0.3 % (0.0-1.0); %Eosinophils 0.2 % (0.0-10.0); %Lymphocytes 15.2 % (21.0-51.0); %Monocytes 12.6 % (0.0-10.0); %Neutrophils 71.3 % (42.0-75.0); Hematocrit 35.1 % (42.0-52.0); Hemoglobin 11.6 g/dL (14.0-18.0); Mean Corpuscular Hemoglobin 29.7 pg (27.0-31.0); Mean Platelet Volume 9.5 fL (7.4-10.4); Platelet Count 246 10x3/uL (130-400); RBC Distribution Width 13.4 % (11.5-14.5); White Blood Cell (WBC) Count 14.6 10x3/uL (4.8-10.8)
[2023-05-28 15:22] VITALS: BMI 39.5
[2023-05-28] MEDS ORDERED: Acetaminophen 325 MG TAB ONE (15:38)
[2023-05-28] MEDS ORDERED: Dextrose 5% in Water 1,000 ML IV PRN (15:43)
[2023-05-28] MEDS ORDERED: Dextrose 50% Abboject 50 ML SYRINGE SLOW IVP PRN (15:43)
[2023-05-28] MEDS ORDERED: Glucagon 1 MG/ML KIT IM PRN (15:43)
[2023-05-28] MEDS ORDERED: ALPRAZolam 1 MG TAB PO PRN (15:44)
[2023-05-28] MEDS ORDERED: Ibuprofen 200 MG TAB ONE (16:23)
[2023-05-28 16:48] LABS: Bacteria/HPF None Seen HPF (None Seen); Bilirubin Negative (Negative); Blood, Urine Negative (Negative); CAUTI Indications for Culture Pelvic or flank pain; Clarity Clear (Clear); Glucose, Urine (Dipstick) 30 mg/dL (Negative); Ketone, Urine Negative (Negative); Leukocyte 25 Leu/uL (Negative); Nitrite Negative (Negative); Protein, Urine (Dipstick) 100 mg/dL (Neg-Trace); RBC/HPF 0-3 HPF (0-3); Specific Gravity, Urine 1.022 (1.002-1.036); Squamous Epithelial 0-3 HPF (0-3); WBC/HPF 0-3 HPF (0-3); pH, Urine 5.5 (5.0-9.0)
[2023-05-28] MEDS: Guaifenesin DM 100-10/5 ML UDCUP PO PRN ×2 (16:49→20:47)
[2023-05-28 16:53] LABS: Urine Culture Reflex No No
[2023-05-28] MEDS ORDERED: metFORMIN XR 500 MG ER.TAB PO SCH (21:00)
[2023-05-28] MEDS ORDERED: Rosuvastatin 10 MG TAB PO SCH (21:00)
[2023-05-28] MEDS ORDERED: Lisinopril 20 MG TAB PO SCH (21:10)
[2023-05-28] MEDS ORDERED: metFORMIN 500 MG TAB PO SCH (21:30)
[2023-05-28] MEDS ORDERED: Alogliptin 25 MG TAB PO SCH (21:30)
[2023-05-28] MEDS ORDERED: Acetaminophen 500 MG TAB PO SCH (21:30)
[2023-05-29] MEDS ORDERED: Ibuprofen 200 MG TAB PO PRN (04:20)
[2023-05-29 08:16] LABS: ALT (SGPT) 55 U/L (8-55); AST (SGOT) 41 U/L (5-34); Albumin 3.7 g/dL (3.5-5.0); Alkaline Phosphatase 76 U/L (40-110); Anion Gap 15 mmol/L (10-20); BUN (Urea Nitrogen) 8 mg/dL (8.9-20.6); Bilirubin, Total 0.9 mg/dL (0.2-1.2); Calc. Creatinine Clearance 223 mL/min (70-130); Calcium 8.4 mg/dL (7.8-10.44); Carbon Dioxide 22 mmol/L (22-29); Chloride 99 mmol/L (98-107); Estimated GFR 112; Globulin 3.4 g/dL (2.4-3.5); Glucose 224 mg/dL (70-105); Potassium 3.7 mmol/L (3.5-5.1); Protein, Total 7.1 g/dL (6.0-8.3); Sodium 132 mmol/L (136-145)
[2023-05-29 08:16] LABS: #Neutrophils 8.4 thou/uL (1.40-6.50); %Basophils 0.2 % (0.0-1.0); %Eosinophils 0.3 % (0.0-10.0); %Lymphocytes 13.4 % (21.0-51.0); %Monocytes 16.6 % (0.0-10.0); Hematocrit 33.3 % (42.0-52.0); Hemoglobin 10.9 g/dL (14.0-18.0); Mean Corpuscular HGB CONC 32.7 g/dL (32.0-36.0); Mean Corpuscular Hemoglobin 29.1 pg (27.0-31.0); Mean Platelet Volume 9.6 fL (7.4-10.4); Platelet Count 251 10x3/uL (130-400); RBC Distribution Width 13.5 % (11.5-14.5); Red Blood Cell (RBC) Count 3.74 mill/uL (4.70-6.10); White Blood Cell (WBC) Count 12.2 10x3/uL (4.8-10.8)
[2023-05-29] MEDS: Acetaminophen 500 MG TAB PO SCH ×2 (08:42→14:13)
[2023-05-29] MEDS: Guaifenesin DM 100-10/5 ML UDCUP PO PRN (08:43)
[2023-05-29 08:45] VITALS: BP 161/78
[2023-05-29] MEDS ORDERED: Lisinopril 20 MG TAB PO SCH (09:00)
[2023-05-29] MEDS ORDERED: Fluticasone Propionate Nasal Spray 16 gm Bottle NASAL SCH (09:00)
[2023-05-29] MEDS ORDERED: cefTRIAXone\\ROCEPHIN 1 GM in Sodium Chloride 0.9% 100 ML IVPB SCH (12:30)
[2023-05-29] MEDS ORDERED: Azithromycin 500 MG in Sodium Chloride 0.9% 250 ML 250 ML IVPB SCH (13:00)
[2023-05-29 14:21] VITALS: TEMP 98.9
[2023-05-29] MEDS ORDERED: metFORMIN XR 500 MG ER.TAB PO SCH (21:00)
[2023-05-29] MEDS ORDERED: Alogliptin 25 MG TAB PO SCH (21:00)
== END 2023-05-29 17:09 | disposition home or self-care (01) ==
LOC: ERS 10:53 → ERHOLD 13:40 → T4-B 14:41
PROVIDERS: ADMIT Student in an Organized Health Care Education/Training Program; ATTEND Student in an Organized Health Care Education/Training Program
DX: A41.9 Sepsis, unspecified organism (principal); J18.1 Lobar pneumonia, unspecified organism; R09.02 Hypoxemia; E87.1 Hypo-osmolality and hyponatremia; D72.829 Elevated white blood cell count, unspecified; E11.9 Type 2 diabetes mellitus without complications; I10 Essential (primary) hypertension; K21.9 Gastro-esophageal reflux disease without esophagitis; G47.33 Obstructive sleep apnea (adult) (pediatric); E87.8 Other disorders of electrolyte and fluid balance, not elsewhere classified; Z79.84 Long term (current) use of oral hypoglycemic drugs; Z79.899 Other long term (current) drug therapy; Z87.891 Personal history of nicotine dependence
CPT/HCPCS: 36415; 36416; 71046; 80053; 81001; 83605; 85025; 85610; 85730; 87040; 87070; 87205; 94640; 96365; 96367; 96372; 96375; 96376; G0378; J0456; J0696; J1650; J1885; J2405; J3490; J7050; J7620